=== PATIENT | female | born 1995 | race Caucasian/White ===

== ENCOUNTER 2025-10-14 22:58 | Emergency (ER) | payer BC ==
[~2025-10-14] VITALS: Ht 154.9 cm; Wt 68.0 kg
[2025-10-15] MEDS: CYCLOBENZAPRINE 10 MG TABLET PO ONE (00:59)
[2025-10-15] MEDS: ACETAMINOPHEN ES 500 MG TABLET PO ONE (01:00)
[2025-10-15] MEDS: NAPROXEN 250 MG TABLET PO ONE (01:00)
[2025-10-15 01:02] VITALS: BP 127/77; TEMP 98.4; O2SAT 99
== END 2025-10-15 01:03 | disposition home or self-care (01) ==
LOC: ER 23:03
DX: M54.2 Cervicalgia (principal)
CPT/HCPCS: 71045-TC